=== PATIENT | male | born 1965 | race Caucasian/White ===

== ENCOUNTER 2017-07-04 01:24 | Emergency (ER) | payer OTHER ==
[2017-07-04 02:55] LABS: DEPAKENE (VALPROIC ACID) 44 ug/mL (50-125)
[2017-07-04 02:58] LABS: ALCOHOL BLOOD 281 mg/dL ([, 0])
[2017-07-04 03:23] LABS: BLOOD UREA NITROGEN <5 mg/dL (9-23); BUN/CREATININE RATIO 5.55; CALCIUM SERUM 8.7 mg/dL (8.4-10.2); CARBON DIOXIDE 25 mmol/L (22-31); CHLORIDE 96 mmol/L (100-111); CREATININE SERUM 0.9 mg/dL (0.6-1.4); GLOM FILT RATE Estimated 97.9 mL/min (>60); GLUCOSE FASTING 106 mg/dL (70-110); POTASSIUM 3.8 mmol/L (3.5-5.1); SODIUM 134 mmol/L (135-145)
[2017-07-04 05:08] LABS: AMPHETAMINE NEG (NEG); BARBITURATES NEG (NEG); BENZODIAZEPINES NEG (NEG); COCAINE NEG (NEG); MARIJUANA NEG (NEG); OPIATES NEG (NEG); TRICYCLIC ANTIDEPRESSANTS NEG (NEG); U METHADONE NEG (NEG)
== END 2017-07-04 09:22 ==
LOC: EDBD 01:24 → CED 01:24
PROVIDERS: Emergency Medicine
DX: R45.851 Suicidal ideations (principal); F10.129 Alcohol abuse with intoxication, unspecified; Y90.7 Blood alcohol level of 200-239 mg/100 ml; I10 Essential (primary) hypertension; K21.9 Gastro-esophageal reflux disease without esophagitis; F32.9 Major depressive disorder, single episode, unspecified
CPT/HCPCS: 36415; 80048; 80164; 80307; 99285; G0480